=== PATIENT | female | born 1995 | race American Indian/Alaskan Native ===

== ENCOUNTER 2017-07-28 17:17 | Emergency (ER) | payer SELFPAY ==
[2017-07-28 20:45] LABS: Hematocrit 37.2 % (30.3-42.9); Hemoglobin 12.7 gm/dl (10.1-14.3); Mean Corpuscular HGB Conc 34 % (30-34); Mean Corpuscular Hemoglobin 30 pg (28-32); Mean Corpuscular Volume 88 fl (79-97); Platelet Count 272 K/mm3 (140-440); Red Blood Count 4.23 M/mm3 (3.65-5.03); Red Cell Distribution Width 12.3 % (13.2-15.2)
[2017-07-28 20:46] LABS: Basophils # (Auto) 0.1 K/mm3 (0.0-0.1); Basophils % (Auto) 1.2 % (0.0-1.8); Eosinophils # (Auto) 0.2 K/mm3 (0.0-0.4); Eosinophils % (Auto) 2.9 % (0.0-4.3); Lymphocytes # (Auto) 2.5 K/mm3 (1.2-5.4); Monocytes # (Auto) 0.4 K/mm3 (0.0-0.8); Monocytes % (Auto) 7.4 % (0.0-7.3)
--- NOTE | 2017-07-28 23:02 | Ultrasound Report ---
FINAL REPORT EXAM: US OB TRANSVAGINAL HISTORY: vag bleeding TECHNIQUE: Ultrasound obstetrical transvaginal PRIORS: There are no prior studies submitted for comparison FINDINGS: There is a gestational sac present within the uterus mean sac diameter is 3.2 centimeters There is an irregular pole present measuring 0.61 centimeters corresponding to estimated gestational age of 7 weeks 3 days. There is no cardiac activity identified on M-mode, pulsed and color Doppler evaluation. A small echogenic focus within the sac could reflect a yolk sac. There is a cystic area focus within the uterus 0.5 centimeters and small amount of fluid noted within the cervical canal No free-fluid is identified. The right ovary is 2.6 x 2.0 x 2.1 centimeter with a 1.3 centimeter simple appearing cyst left ovary is 3.0 x 1.4 x 2.2 centimeters. IMPRESSION: pole identified corresponding to 7 weeks 3 days with no cardiac activity identified Small amount of fluid in the cervical canal and a small cystic-appearing focus within the uterus differential consideration includes demise, very early gestation is a possibility and continued followup recommended
--- NOTE | 2017-07-28 23:05 | Ultrasound Report ---
FINAL REPORT EXAM: US OB < = 14 WEEKS FETUS HISTORY: vag bleeding TECHNIQUE: Ultrasound obstetrical transabdominal PRIORS: None. FINDINGS: There is a gestational sac present within the uterus mean sac diameter is 3.2 centimeters There is an irregular pole present measuring 0.61 centimeters corresponding to estimated gestational age of 7 weeks 3 days. There is no cardiac activity identified on M-mode, pulsed and color Doppler evaluation. A small echogenic focus within the sac could reflect a yolk sac. There is a cystic area focus within the uterus 0.5 centimeters and small amount of fluid noted within the cervical canal No free-fluid is identified. The right ovary is 2.6 x 2.0 x 2.1 centimeter with a 1.3 centimeter simple appearing cyst left ovary is 3.0 x 1.4 x 2.2 centimeters. IMPRESSION: pole identified corresponding to 7 weeks 3 days with no cardiac activity identified Small amount of fluid in the cervical canal and a small cystic-appearing focus within the uterus differential consideration includes demise, very early gestation is a possibility and continued followup recommended
--- NOTE | 2017-07-28 23:37 | Emergency Department Report ---
ED HPI - General Chief complaint: Vaginal Bleeding Stated complaint: VAGINAL BLEEDING/ Time Seen by Provider: 07/28/17 22:31 Source: patient Mode of arrival: Ambulatory Limitations: No Limitations - History of Present Illness MD Complaint: vaginal bleeding (happened this morning, only small amount then stopped. No active bleeding in the ER. Was associated with lower abdomenal pressure but not now. This is her first and she is 8-9 weeks in . No care yet.) - Related Data Allergies Allergy/AdvReac Type Severity Reaction Status Date / Time No Known Allergies Allergy Unverified 07/28/17 17:28 ED Review of Systems ROS: Stated complaint: VAGINAL BLEEDING/ Other details as noted in HPI Constitutional: denies: chills, fever Eyes: denies: eye pain, eye discharge, vision change ENT: denies: ear pain, throat pain Respiratory: denies: cough, shortness of breath, wheezing Cardiovascular: denies: chest pain, palpitations Endocrine: no symptoms reported Gastrointestinal: denies: abdominal pain, nausea, diarrhea Genitourinary: denies: urgency, dysuria, discharge Musculoskeletal: denies: back pain, joint swelling, arthralgia Skin: denies: rash, lesions Neurological: denies: headache, weakness, paresthesias Psychiatric: denies: anxiety, depression Hematological/Lymphatic: denies: easy bleeding, easy bruising ED Past Medical Hx - Past Medical History Previous Medical History?: No - Surgical History Past Surgical History?: No - Social History Smoking Status: Never Smoker Substance Use Type: None ED Physical Exam - General Limitations: No Limitations General appearance: alert, in no apparent distress - Head Head exam: Present: atraumatic, normocephalic - Eye Eye exam: Present: normal appearance - ENT ENT exam: Present: mucous membranes moist - Neck Neck exam: Present: normal inspection - Respiratory Respiratory exam: Present: normal lung sounds bilaterally. Absent: respiratory distress - Cardiovascular Cardiovascular Exam: Present: regular rate, normal rhythm. Absent: systolic murmur, diastolic murmur, rubs, gallop - GI/Abdominal GI/Abdominal exam: Present: soft, normal bowel sounds - Bi-manual exam: Present: normal bi-manual exam. Absent: cervical motion tendernes, adnexal tenderness, adnexal mass, uterine enlargement, uterine tenderness - Extremities Exam Extremities exam: Present: normal inspection - Back Exam Back exam: Present: normal inspection - Neurological Exam Neurological exam: Present: alert, oriented X3 - Psychiatric Psychiatric exam: Present: normal affect, normal mood - Skin Skin exam: Present: warm, dry, intact, normal color. Absent: rash ED Course Vital Signs 07/28/17 07/28/17 07/28/17 17:28 20:26 20:30 Temperature 99.3 F Pulse Rate 92 H 47 L 46 L Respiratory 16 8 L 8 L Rate Blood Pressure 118/64 161/86 161/86 O2 Sat by Pulse 98 99 99 Oximetry 07/28/17 07/28/17 07/28/17 20:46 22:06 22:12 Temperature Pulse Rate 49 L Respiratory 9 L 18 Rate Blood Pressure 154/83 119/65 O2 Sat by Pulse 97 Oximetry ED Medical Decision Making - Lab Data Result diagrams: 07/28/17 20:22 Critical care attestation.: If time is entered above; I have spent that time in minutes in the direct care of this critically ill patient, excluding procedure time. ED Disposition Clinical Impression: Vaginal bleeding affecting early Disposition: DC-01 TO HOME OR SELFCARE Is pt being admited?: No Does the pt Need Aspirin: No Condition: Good Instructions: Threatened Miscarriage (ED) Referrals: FILIPPO CORADO MD [Primary Care Provider] - 3-5 Days
[2017-07-29 01:00] LABS: Bacteria,Urine 2+ /HPF (Negative); Bilirubin,Urine NEG (Negative); Blood,Urine SM (Negative); Color,Urine Yellow (Yellow); Nitrite,Urine NEG (Negative); Protein,Urine <15 mg/dL mg/dL (Negative)
[2017-07-29 01:40] VITALS: BP 111/65
== END 2017-07-29 01:40 | disposition home or self-care (01) ==
LOC: ED 17:17
DX: O46.91 Antepartum hemorrhage, unspecified, first trimester (principal); Z3A.09 9 weeks gestation of pregnancy
CPT/HCPCS: 36415; 76801; 76817; 81001; 84702; 84703; 85025; 86850; 86900; 86901; 99284

== ENCOUNTER 2019-05-29 15:58 | Emergency (ER) | payer MEDICAID ==
--- NOTE | 2019-05-29 16:34 | Event Note ---
ED Screening Note Date of service: 05/29/19 Time: 16:32 (\) ED Screening Note: 23 y o female presents to ED cc of lower pelvic cramping x 2 days and 1 episode of vomit LMP: 04/19/19- positive home preg test This initial assessment/diagnostic orders/clinical plan/treatment(s) is/are subject to change based on patients health status, clinical progression and re- assessment by fellow clinical providers in the ED. Further treatment and workup at subsequent clinical providers discretion. Patient/guardian urged not to elope from the ED as their condition may be serious if not clinically assessed and managed. Initial orders include: ua,upt acc eval
[2019-05-29 17:59] LABS: HCG Qualitative,Urine Positive (Negative)
[2019-05-29 18:23] LABS: Bilirubin,Urine NEG (Negative); Blood,Urine NEG (Negative); Color,Urine Straw (Yellow); Mucus,Urine FEW /HPF; Protein,Urine <15 mg/dL mg/dL (Negative); Urobilinogen,Urine < 2.0 mg/dL (<2.0)
--- NOTE | 2019-05-29 20:26 | Emergency Department Report ---
ED Female HPI - General Chief complaint: Abdominal Pain Stated complaint: ABD PAIN, PREG Time Seen by Provider: 05/29/19 19:27 Source: patient Mode of arrival: Ambulatory Limitations: No Limitations - History of Present Illness Initial comments: 23-year-old -[place]ian female presents to the emergency room for having lower abdominal pain since last night. Patient admits to nausea and vomiting. Patient denies any diarrhea pain for urination vaginal bleeding or vaginal discharge. Patient reports that she is approximately 2 months . Patient's last menstrual period was 04/19/2019. Patient is 2 para 0. Patient reports the pain is 5 out of 10 and now crampy and intermittently. Patient has taken nothing for pain. Patient reports pain is worse with lying down. MD Complaint: pelvic pain -: Last night Location: suprapubic Severity scale (0 -10): 5 Quality: cramping Consistency: intermittent Improves with: none Worsens with: none Are you Now?: Yes Last Menstrual Period: 04/19/19 EDC: 01/24/20 Associated Symptoms: nausea/vomiting - Related Data Sexually active: Yes : 2 Para: 0 Previous Rx's Medication Instructions Recorded Last Taken Type Cephalexin [Keflex] 500 mg PO BID 7 Days capsule 07/29/17 Unknown Rx Nitrofurantoin [place]/M-Cryst 100 mg PO Q12HR #20 capsule 05/29/19 Unknown Rx [Macrobid CAP] Allergies Allergy/AdvReac Type Severity Reaction Status Date / Time No Known Allergies Allergy Unverified 07/28/17 17:28 ED Review of Systems ROS: Stated complaint: ABD PAIN, PREG Other details as noted in HPI Comment: All other systems reviewed and negative ED Past Medical Hx - Past Medical History Previous Medical History?: No - Surgical History Past Surgical History?: No - Social History Smoking Status: Never Smoker Substance Use Type: None - Medications Home Medications: Home Medications Medication Instructions Recorded Confirmed Last Taken Type Cephalexin [Keflex] 500 mg PO BID 7 Days capsule 07/29/17 Unknown Rx Nitrofurantoin [place]/M-Cryst 100 mg PO Q12HR #20 capsule 05/29/19 Unknown Rx [Macrobid CAP] ED Physical Exam - General Limitations: No Limitations General appearance: alert, in no apparent distress - Head Head exam: Present: atraumatic, normocephalic - Eye Eye exam: Present: normal appearance - ENT ENT exam: Present: mucous membranes moist ED Course Vital Signs 05/29/19 15:59 Temperature 98.5 F Pulse Rate 83 Respiratory 16 Rate Blood Pressure 138/81 O2 Sat by Pulse 100 Oximetry ED Medical Decision Making - Radiology Data Radiology results: report reviewed Patient: PAMELA HERNANDEZ MR#: [id number] : 1995 Acct:[id number] Age/Sex: 21 / F ADM Date: 07/28/17 Loc: ED Attending Dr: Ordering Physician: REBA CLAYTON MD Date of Service: 07/28/17 Procedure(s): US OB transvaginal Accession Number(s): [id number] cc: REBA CLAYTON MD FINAL REPORT EXAM: US OB TRANSVAGINAL HISTORY: vag bleeding TECHNIQUE: Ultrasound obstetrical transvaginal PRIORS: There are no prior studies submitted for comparison FINDINGS: There is a gestational sac present within the uterus mean sac diameter is 3.2 centimeters There is an irregular pole present measuring 0.61 centimeters corresponding to estimated gestational age of 7 weeks 3 days. There is no cardiac activity identified on M-mode, pulsed and color Doppler evaluation. A small echogenic focus within the sac could reflect a yolk sac. There is a cystic area focus within the uterus 0.5 centimeters and small amount of fluid noted within the cervical canal No free-fluid is identified. The right ovary is 2.6 x 2.0 x 2.1 centimeter with a 1.3 centimeter simple appearing cyst left ovary is 3.0 x 1.4 x 2.2 centimeters. IMPRESSION: pole identified corresponding to 7 weeks 3 days with no cardiac activity identified Small amount of fluid in the cervical canal and a small cystic-appearing focus within the uterus differential consideration includes demise, very early gestation is a possibility and continued followup recommended Transcribed By: CARMEN Dictated By: CAROLINE FRIAS MD Electronically Authenticated By: CAROLINE FRIAS MD Signed Date/Time: 07/28/171857 DD/ 57 TD/TT: 07/28/171857 - Medical Decision Making 23-year-old -[place] female presents to the emergency room for having lower abdominal pain since last night. Patient admits to nausea and vomiting. Patient denies any diarrhea pain for urination vaginal bleeding or vaginal discharge. Patient reports that she is approximately 2 months . Patient's last menstrual period was 04/19/2019. Patient is 2 para 0. Patient reports the pain is 5 out of 10 and now crampy and intermittently. Patient has taken nothing for pain. Patient reports pain is worse with lying down. Critical care attestation.: If time is entered above; I have spent that time in minutes in the direct care of this critically ill patient, excluding procedure time. ED Disposition Clinical Impression: UTI (urinary tract infection), Threatened miscarriage in early Disposition: DC- TO HOME OR SELFCARE Is pt being admited?: No Does the pt Need Aspirin: No Condition: Stable Instructions: Abdominal Pain (ED), Threatened Miscarriage (ED), Urinary Tract Infection in Women (ED) Additional Instructions: Please follow up with [facility]. Ultrasound shows no cardiac activity possible ear ly versus demise. I have listed several [facility] providers low for her convenience. You may start to have some bleeding. Prescriptions: Nitrofurantoin [place]/M-Cryst [Macrobid CAP] 100 mg PO Q12HR #20 capsule Referrals: PRIMARY CARE, [Primary Care Provider] - 3-5 Days KRYSTIN GUZMAN MD [Staff Physician] - 3-5 Days JONATHON MENDOZA MD [Staff Physician] - 3-5 Days Forms: Work/School Release Form(ED)
[2019-05-29] MEDS ORDERED: ACETAMINOPHEN 325 MG TAB PO ONE (21:19)
--- NOTE | 2019-05-29 21:37 | Ultrasound Report ---
OB ultrasound. 05/29/2019. HISTORY: Pelvic pain. FINDINGS: Imaging was performed by transabdominally and endovaginally. The uterus measures 9.6 x 4.5 x 5.6 cm. Early gestational sac is dated 6 weeks 6 days. A yolk sac is present. There is no karma e. Right ovary measures 3.2 x 1.7 x 1.5 cm. Left ovary measures 3.5 x 2.6 x 3.6 cm and contains a 2.2 cm solid complex cyst. Both ovaries demonstrate appropriate flow. Negative for adnexal mass or fluid. IMPRESSION: 1. Early gestational sac containing a yolk sac dated 6 weeks 6 days. 2. Probable corpus luteum cyst left ovary. Signer Name: Bob Ortega MD Signed: 05/29/2019 9:32 PM Workstation Name: [id number]
[2019-05-29 22:08] VITALS: BP 125/84
== END 2019-05-29 22:05 | disposition home or self-care (01) ==
LOC: ED 15:58
DX: O23.41 Unspecified infection of urinary tract in pregnancy, first trimester (principal); O20.0 Threatened abortion; Z79.899 Other long term (current) drug therapy; Z3A.01 Less than 8 weeks gestation of pregnancy
CPT/HCPCS: 36415; 76801; 76817; 81001; 81025; 84702

== ENCOUNTER 2019-08-14 08:41 | Emergency (ER) | payer MEDICAID ==
[2019-08-14 08:48] VITALS: BP 118/73
--- NOTE | 2019-08-14 09:25 | Emergency Department Report ---
ED HPI - General Chief complaint: Vaginal Bleeding Stated complaint: 16 WKS /VAGINAL BLOOD Time Seen by Provider: 08/14/19 09:22 Source: patient Mode of arrival: Ambulatory Limitations: No Limitations - History of Present Illness Initial comments: 23-year-old -[place] female who reports she is 16 weeks comes in for vaginal spotting x1. Patient states that she does not have any nausea vomiting had some mild pelvic pain. Patient denies smoking cigarettes or week. Denies any illicit drugs. Feels safe at home. Has not traveled in the last 14 days. Last menstrual period was 04/19/2019. Patient is 2 para 0. patient is followed by [facility]. Complaint: vaginal bleeding - Related Data Previous Rx's Medication Instructions Recorded Last Taken Type Cephalexin [Keflex] 500 mg PO BID 7 Days capsule 07/29/17 Unknown Rx Nitrofurantoin [place]/M-Cryst 100 mg PO Q12HR #20 capsule 05/29/19 Unknown Rx [Macrobid CAP] Allergies Allergy/AdvReac Type Severity Reaction Status Date / Time No Known Allergies Allergy Unverified 07/28/17 17:28 ED Review of Systems ROS: Stated complaint: 16 WKS /VAGINAL BLOOD Other details as noted in HPI Comment: All other systems reviewed and negative ED Past Medical Hx - Past Medical History Previous Medical History?: No - Surgical History Past Surgical History?: No - Social History Smoking Status: Never Smoker Substance Use Type: None - Medications Home Medications: Home Medications Medication Instructions Recorded Confirmed Last Taken Type Cephalexin [Keflex] 500 mg PO BID 7 Days capsule 07/29/17 Unknown Rx Nitrofurantoin [place]/M-Cryst 100 mg PO Q12HR #20 capsule 05/29/19 Unknown Rx [Macrobid CAP] ED Physical Exam - General Limitations: No Limitations General appearance: alert, in no apparent distress - Head Head exam: Present: atraumatic, normocephalic - Eye Eye exam: Present: normal appearance - ENT ENT exam: Present: mucous membranes moist - Neck Neck exam: Present: normal inspection - Respiratory Respiratory exam: Present: normal lung sounds bilaterally. Absent: respiratory distress - Cardiovascular Cardiovascular Exam: Present: regular rate, normal rhythm. Absent: systolic murmur, diastolic murmur, rubs, gallop - GI/Abdominal GI/Abdominal exam: Present: soft, normal bowel sounds - Extremities Exam Extremities exam: Present: normal inspection - Back Exam Back exam: Present: normal inspection - Neurological Exam Neurological exam: Present: alert, oriented X3 - Psychiatric Psychiatric exam: Present: normal affect, normal mood - Skin Skin exam: Present: warm, dry, intact, normal color. Absent: rash ED Course Vital Signs 08/14/19 08:45 Temperature 99.0 F Pulse Rate 108 H Respiratory 18 Rate Blood Pressure 118/73 O2 Sat by Pulse 100 Oximetry ED Medical Decision Making - Lab Data Result diagrams: 08/14/19 10:26 08/14/19 10:26 - Radiology Data Radiology results: report reviewed Patient: PAMELA HERNANDEZ MR#: [id number] : 1995 Acct:[id number] Age/Sex: 23 / F ADM Date: 08/14/19 Loc: ED Attending Dr: Ordering Physician: BLAYNE SOUTH Date of Service: 08/14/19 Procedure(s): US OB >= 14 weeks Fetus Accession Number(s): [id number] cc: BLAYNE SOUTH TRANSABDOMINAL AND TRANSVAGINAL OB PELVIC ULTRASOUND INDICATION / CLINICAL INFORMATION: Bleeding. COMPARISON: 05/29/19. FINDINGS: There is a single intrauterine with an estimated sonographic gestational age of 17 weeks 2 days and an EDC of 01/20/20. Clinical dates are 16 weeks 5 days. There has been appropriate interval growth since the prior study. The heart rate is 142 bpm. presentation is cephalic. Amniotic fluid volume is normal. The placenta is located posteriorly, is grade 1 and is free of the os. The uterine cervix measures 4.4 cm in length and the internal os is closed. The ovaries are not well seen. IMPRESSION: Single viable 17 week 2 day intrauterine without complication. Signer Name: Sohan Kelly MD Signed: 08/14/2019 10:29 AM Workstation Name: [id number] Transcribed By: RT Dictated By: Sohan Kelly MD Electronically Authenticated By: Sohan Kelly MD Signed Date/Time: 08/14/19 1029 DD/ 1022 - Medical Decision Making 23-year-old -[place] female who reports she is 16 weeks comes in for vaginal spotting x1. Patient states that she does not have any nausea vomiting had some mild pelvic pain. Patient denies smoking cigarettes or week. Denies any illicit drugs. Feels safe at home. Has not traveled in the last 14 days. Last menstrual period was 04/19/2019. Patient is 2 para 0. patient is followed by [facility]. Critical care attestation.: If time is entered above; I have spent that time in minutes in the direct care of this critically ill patient, excluding procedure time. ED Disposition Clinical Impression: Vaginal spotting Disposition: DC-01 TO HOME OR SELFCARE Is pt being admited?: No Does the pt Need Aspirin: No Condition: Stable Instructions: Threatened Miscarriage (ED) Additional Instructions: Ultrasound shows a healthy embryo approximately 17 weeks.Shows no anemia. I recommend for you to follow-up with your [facility] provider.
--- NOTE | 2019-08-14 10:33 | Ultrasound Report ---
TRANSABDOMINAL AND TRANSVAGINAL OB PELVIC ULTRASOUND INDICATION / CLINICAL INFORMATION: Bleeding. COMPARISON: 05/29/19. FINDINGS: There is a single intrauterine with an estimated sonographic gestational age of 17 weeks 2 days and an EDC of 01/20/20. Clinical dates are 16 weeks 5 days. There has been appropriate interval growth since the prior study. The heart rate is 142 bpm. presentation is cephalic. Amniotic fluid volume is normal. The placenta is located posteriorly, is grade 1 and is free of the os. The uterine cervix measures 4.4 cm in length and the internal os is closed. The ovaries are not well seen. IMPRESSION: Single viable 17 week 2 day intrauterine without complication. Signer Name: Sohan Kelly MD Signed: 08/14/2019 10:29 AM Workstation Name: [id number]
[2019-08-14 11:01] LABS: Basophils % (Auto) 0.8 % (0.0-1.8); Eosinophils # (Auto) 0.1 K/mm3 (0.0-0.4); Eosinophils % (Auto) 1.4 % (0.0-4.3); Hematocrit 30.5 % (30.3-42.9); Hemoglobin 10.6 gm/dl (10.1-14.3); Lymphocytes # (Auto) 1.3 K/mm3 (1.2-5.4); Lymphocytes % (Auto) 23.8 % (13.4-35.0); Mean Corpuscular HGB Conc 35 % (30-34); Mean Corpuscular Volume 85 fl (79-97); Monocytes # (Auto) 0.5 K/mm3 (0.0-0.8); Monocytes % (Auto) 8.5 % (0.0-7.3); Platelet Count 261 K/mm3 (140-440); Red Blood Count 3.61 M/mm3 (3.65-5.03)
[2019-08-14 11:08] LABS: BUN/Creatinine Ratio 13; Blood Urea Nitrogen 5 mg/dL (7-17); Calcium 8.8 mg/dL (8.4-10.2); Hemolysis Index 0
== END 2019-08-14 12:50 | disposition home or self-care (01) ==
LOC: ED 08:41
DX: O26.852 Spotting complicating pregnancy, second trimester (principal); Z3A.17 17 weeks gestation of pregnancy; Z79.899 Other long term (current) drug therapy
CPT/HCPCS: 36415; 76805; 76817; 80048; 84703; 85025; 86850; 86900; 86901

== ENCOUNTER 2019-11-05 17:51 | Observation (INO) | payer MEDICAID ==
[2019-11-05 18:39] LABS: Bacteria,Urine 2+ /HPF (Negative); Bilirubin,Urine NEG (Negative); Blood,Urine NEG (Negative); Color,Urine Yellow (Yellow); Mucus,Urine FEW /HPF; Protein,Urine <15 mg/dL mg/dL (Negative); Urobilinogen,Urine < 2.0 mg/dL (<2.0)
[2019-11-05] MEDS ORDERED: AMPICILLIN/NS 2 GM/100 ML 2 GM/100 ML BAG IV ONE (21:00)
[2019-11-05] MEDS: LACTATED RINGERS 1,000 ML IV SCH (21:01)
--- NOTE | 2019-11-05 21:46 | Ultrasound Report ---
US OB limited INDICATION / CLINICAL INFORMATION: labor. COMPARISON: 08/14/2019 FINDINGS: Viable single intrauterine gestation in the cephalic presentation. heart rate 157 bpm. DEANGELO is 14. IMPRESSION: 1. Normal DEANGELO. Signer Name: Tobias Mena MD Signed: 11/05/2019 9:41 PM Workstation Name: [id number]
--- NOTE | 2019-11-05 21:48 | Ultrasound Report ---
ULTRASOUND RENAL INDICATION: CVA TENDERNESS. COMPARISON: No relevant prior imaging study available. FINDINGS: RIGHT KIDNEY: Size: 12.8 cm. Echogenicity: Normal. Cortical thickness: Normal. Stones: None. Hydronephrosis: Moderate hydronephrosis. Cyst or mass: None. LEFT KIDNEY: Size: 11.4 cm. Echogenicity: Normal. Cortical thickness: Normal. Stones: None. Hydronephrosis: None. Cyst or mass: None. Urinary Bladder: Nondistended. Free Fluid: None. Additional Findings: None. IMPRESSION 1. Right hydronephrosis. Signer Name: Tobias Mena MD Signed: 11/05/2019 9:43 PM Workstation Name: [id number]
[2019-11-05 22:59] LABS: Basophils # (Auto) 0.1 K/mm3 (0.0-0.1); Eosinophils # (Auto) 0.1 K/mm3 (0.0-0.4); Hematocrit 29.1 % (30.3-42.9); Hemoglobin 9.5 gm/dl (10.1-14.3); Lymphocytes # (Auto) 1.9 K/mm3 (1.2-5.4); Lymphocytes % (Auto) 24.6 % (13.4-35.0); Mean Corpuscular HGB Conc 33 % (30-34); Mean Corpuscular Volume 81 fl (79-97); Monocytes # (Auto) 0.6 K/mm3 (0.0-0.8); Monocytes % (Auto) 7.5 % (0.0-7.3); Platelet Count 332 K/mm3 (140-440); Red Blood Count 3.57 M/mm3 (3.65-5.03); Red Cell Distribution Width 13.6 % (13.2-15.2)
[2019-11-05 23:07] LABS: Amphetamine Screen,Urine PRESUMPTIVE NEGATIVE; Benzodiazepines Screen,Urine PRESUMPTIVE NEGATIVE; Cannabinoid Screen,Urine PRESUMPTIVE NEGATIVE; Cocaine Screen,Urine PRESUMPTIVE NEGATIVE; Methadone Screen,Urine PRESUMPTIVE NEGATIVE; Opiate Screen,Urine PRESUMPTIVE NEGATIVE
[2019-11-05 23:12] LABS: Alanine Aminotransferase 7 units/L (7-56); Albumin 3.5 g/dL (3.9-5); BUN/Creatinine Ratio 10; Blood Urea Nitrogen 4 mg/dL (7-17); Calcium 8.9 mg/dL (8.4-10.2); Hemolysis Index 23
[2019-11-06] MEDS: AMPICILLIN/NS 1 GM/50 ML 1 GM/50 ML BAG IV SCH ×3 (02:09→10:29)
[2019-11-06] MEDS: LACTATED RINGERS 1,000 ML IV SCH (10:28)
[2019-11-06 13:23] VITALS: BP 111/68
== END 2019-11-06 13:30 | disposition home or self-care (01) ==
LOC: TRG 17:51 → APU 18:04 → TRG 18:24 → LD 11-06 05:38
PROVIDERS: ADMIT Obstetrics & Gynecology; ATTEND Obstetrics & Gynecology
DX: O60.03 Preterm labor without delivery, third trimester (principal); Z3A.28 28 weeks gestation of pregnancy
CPT/HCPCS: 36415; 76770; 76815; 80053; 80307; 81001; 85025; 87086; 96374; 96376; G0378; J0290; J7120

== ENCOUNTER 2019-12-28 23:23 | Outpatient (CLI) | payer MEDICAID ==
[2019-12-29] VITALS: BP 116/81
== END 2019-12-29 00:34 | disposition home or self-care (01) ==
LOC: TRG 23:23
PROVIDERS: ATTEND Obstetrics & Gynecology
DX: O42.913 Preterm premature rupture of membranes, unspecified as to length of time between rupture and onset of labor, third trimester (principal); Z3A.36 36 weeks gestation of pregnancy
CPT/HCPCS: 59025

== ENCOUNTER 2020-01-11 14:20 | Outpatient (CLI) | payer MEDICAID ==
[2020-01-11 14:57] VITALS: BP 133/88
== END 2020-01-11 17:22 | disposition home or self-care (01) ==
LOC: TRG 14:20 → APU 14:20 → TRG 17:22
PROVIDERS: ATTEND Obstetrics & Gynecology
DX: O26.893 Other specified pregnancy related conditions, third trimester (principal); R10.9 Unspecified abdominal pain; Z3A.38 38 weeks gestation of pregnancy
CPT/HCPCS: 59025

== ENCOUNTER 2020-01-20 11:16 | Outpatient (CLI) | payer MEDICAID ==
[2020-01-20 12:37] LABS: Alanine Aminotransferase 12 units/L (7-56); Uric Acid 4.9 mg/dL (3.5-7.6)
[2020-01-20 12:53] LABS: Hematocrit 25.4 % (30.3-42.9); Hemoglobin 8.3 gm/dl (10.1-14.3); Mean Corpuscular HGB Conc 33 % (30-34); Mean Corpuscular Volume 70 fl (79-97); Red Blood Count 3.65 M/mm3 (3.65-5.03)
[2020-01-20 12:54] LABS: Platelet Count 276 K/mm3 (140-440); Red Cell Distribution Width 18.1 % (13.2-15.2)
[2020-01-20 13:06] LABS: Bacteria,Urine 2+ /HPF (Negative); Bilirubin,Urine NEG (Negative); Blood,Urine MOD (Negative); Color,Urine Straw (Yellow); Mucus,Urine FEW /HPF; Protein,Urine <15 mg/dL mg/dL (Negative); Urobilinogen,Urine < 2.0 mg/dL (<2.0)
[2020-01-20 13:22] VITALS: BP 124/79
== END 2020-01-20 14:15 | disposition home or self-care (01) ==
LOC: APU 11:16 → TRG 11:16
PROVIDERS: ATTEND Obstetrics & Gynecology
DX: O13.3 Gestational [pregnancy-induced] hypertension without significant proteinuria, third trimester (principal); Z3A.39 39 weeks gestation of pregnancy
CPT/HCPCS: 36415; 59025; 81001; 82565; 83615; 84450; 84460; 84550; 85027; 87086

== ENCOUNTER 2020-03-29 19:50 | Emergency (ER) | payer MEDICAID ==
[2020-03-29 19:59] VITALS: BP 149/79
--- NOTE | 2020-03-29 20:53 | Emergency Department Report ---
ED Headache HPI - General Chief Complaint: Headache Stated Complaint: HEADACHE Time Seen by Provider: 03/29/20 20:48 - History of Present Illness Initial Comments: Patient is a 24-year-old female presents emergency room with complaints of a frontal headache that began 2 days ago. She states that she has been taking Tylenol which helps relieve the headache but occasionally it will return. She states the headache is a 5 out of 10. She denies any fall or injury, neck stiffness, fever, nausea, vomiting, diarrhea, shortness of breath, chest pain, vision changes, numbness, weakness. Patient states that she was evaluated in [facility] emergency department at [facility] yesterday 03/28/2020 due to headache, fatigue and was diagnosed with anemia. She states that she did not require a blood transfusion. She denies any bleeding present she states that she has a history of anemia. She was given iron tablet prescription per patient. She has never required a transfusion. She states that they did not start her on a stool softener. She has a past medical history of asthma and eczema. No allergies to medications. Allergies/Adverse Reactions: Allergies Latex, Natural Rubber Allergy (Verified 01/22/20 06:46) Rash Pt states she has redness and irritation from latex Home Medications: Ambulatory Orders Cephalexin [Keflex] 500 mg PO BID 7 Days capsule 07/29/17 Nitrofurantoin Ellis/M-Cryst [Macrobid CAP] 100 mg PO Q12HR #20 capsule 05/29/19 Ampicillin 500 mg PO Q6H #30 capsule 11/06/19 Ibuprofen [Motrin 800 MG tab] 800 mg PO Q6H PRN #30 tablet 01/22/20 oxyCODONE /ACETAMINOPHEN [Percocet 5/325 mg] 1 tab PO Q6H PRN #30 tablet 01/22/20 Ferrous Sulfate [Feosol 325 MG tab] 325 mg PO TID 30 Days #90 tablet 01/25/20 labetaloL [Labetalol 100mg TAB] 100 mg PO BID 7 Days #14 tablet 01/25/20 Butalb/Acetaminophen/Caffeine [Fioricet 50-300-40 mg CAP] 1 cap PO Q8HR PRN #12 cap 03/29/20 Docusate Sodium [Colace] 100 mg PO BID #60 capsule 03/29/20 ED Review of Systems ROS: Stated complaint: HEADACHE Other details as noted in HPI Comment: All other systems reviewed and negative ED Past Medical Hx - Past Medical History Previous Medical History?: Yes Hx Hypertension: Yes (during ) Hx Congestive Heart Failure: No Hx Diabetes: No Hx Deep Vein Thrombosis: No Hx Renal Disease: No Hx Sickle Cell Disease: Yes (SICKLE-CELL TRAIT) Hx Headaches / Migraines: Yes Hx Seizures: No Hx Asthma: Yes (2018) Hx COPD: No Hx HIV: No - Surgical History Past Surgical History?: Yes Additional Surgical History: C-Sec - Social History Smoking Status: Never Smoker Substance Use Type: None - Medications Home Medications: Home Medications Medication Instructions Recorded Confirmed Last Taken Type Cephalexin [Keflex] 500 mg PO BID 7 Days capsule 07/29/17 01/22/20 Unknown Rx Nitrofurantoin Ellis/M-Cryst 100 mg PO Q12HR #20 capsule 05/29/19 01/22/20 Unknown Rx [Macrobid CAP] Ampicillin 500 mg PO Q6H #30 capsule 11/06/19 01/22/20 Unknown Rx Ibuprofen [Motrin 800 MG tab] 800 mg PO Q6H PRN #30 tablet 01/22/20 Unknown Rx oxyCODONE /ACETAMINOPHEN [Percocet 1 tab PO Q6H PRN #30 tablet 01/22/20 Unknown Rx 5/325 mg] Ferrous Sulfate [Feosol 325 MG tab] 325 mg PO TID 30 Days #90 tablet 01/25/20 Unknown Rx labetaloL [Labetalol 100mg TAB] 100 mg PO BID 7 Days #14 tablet 01/25/20 Unknown Rx Butalb/Acetaminophen/Caffeine 1 cap PO Q8HR PRN #12 cap 03/29/20 Unknown Rx [Fioricet 50-300-40 mg CAP] Docusate Sodium [Colace] 100 mg PO BID #60 capsule 03/29/20 Unknown Rx ED Physical Exam - General Limitations: No Limitations General appearance: alert, in no apparent distress - Head Head exam: Present: atraumatic, normocephalic - Eye Eye exam: Present: normal appearance, PERRL, EOMI, other (no pale conjunctiva). Absent: periorbital swelling, periorbital tenderness - ENT ENT exam: Present: mucous membranes moist - Respiratory Respiratory exam: Present: normal lung sounds bilaterally. Absent: respiratory distress, wheezes, rales, rhonchi, stridor, chest wall tenderness, accessory muscle use, decreased breath sounds, prolonged expiratory - Cardiovascular Cardiovascular Exam: Present: regular rate, normal rhythm, normal heart sounds. Absent: systolic murmur, diastolic murmur, rubs, gallop - Neurological Exam Neurological exam: Present: alert, oriented X3, CN II-XII intact, normal gait. Absent: motor sensory deficit - Psychiatric Psychiatric exam: Present: normal affect, normal mood - Skin Skin exam: Present: warm, dry, intact ED Course Vital Signs 03/29/20 19:55 Temperature 99.3 F Pulse Rate 105 H Respiratory 18 Rate Blood Pressure 149/79 O2 Sat by Pulse 100 Oximetry ED Medical Decision Making - Medical Decision Making Patient is a 24-year-old female presents emergency room with complaints of a frontal headache that began 2 days ago. She states that she has been taking Tylenol which helps relieve the headache but occasionally it will return. She states the headache is a 5 out of 10. She denies any fall or injury, neck stiffness, fever, nausea, vomiting, diarrhea, shortness of breath, chest pain, v ision changes, numbness, weakness. Patient states that she was evaluated in the emergency department at [facility] yesterday 03/28/2020 due to headache, fatigue and was diagnosed with anemia. She states that she did not require a blood transfusion. She denies any bleeding present she states that she has a history of anemia. She was given iron tablet prescription per patient. She has never required a transfusion. She states that they did not start her on a stool softener. She has a past medical history of asthma and eczema. No allergies to medications. Vitals are stable. Patient is nontoxic-appearing, no acute distress, no pale conjunctiva, no focal neuro deficits. Patient is presenting with mild headache. Patient will be given prescription for Fioricet. Advised patient to stop taking regular Tylenol. Patient will also be given prescription for Colace as she was recently started on iron supplements. Patient will be referred to primary care physician for close follow-up. Discussed very strict return precautions with patient. Advised patient Please take medication as prescribed. Stop taking regular Tylenol. Increase your water intake. Please eat iron rich foods. Follow-up with a primary care doctor in the next 2 to 3 days for reexamination. Return to emergency room immediately for any new or worsening symptoms including but not limited to worsening fatigue, shortness of breath, chest pain, lightheadedness, dizziness, episodes of feeling like you are going to pass out or passing out, heavy bleeding, etc. Critical care attestation.: If time is entered above; I have spent that time in minutes in the direct care of this critically ill patient, excluding procedure time. ED Disposition Clinical Impression: History of anemia Headache Qualifiers: Headache type: unspecified Headache chronicity pattern: acute headache Intractability: not intractable Qualified Code(s): R51.9 - Headache, unspecified Disposition: DC- TO HOME OR SELFCARE Is pt being admited?: No Does the pt Need Aspirin: No Condition: Stable Instructions: Iron Rich Diet (ED), Acute Headache (ED), Anemia (ED) Additional Instructions: Please take medication as prescribed. Stop taking regular Tylenol. Increase your water intake. Please eat iron rich foods. Follow-up with a primary care doctor in the next 2 to 3 days for reexamination. Return to emergency room immediately for any new or worsening symptoms including but not limited to w orsening fatigue, shortness of breath, chest pain, lightheadedness, dizziness, episodes of feeling like you are going to pass out or passing out, heavy bleeding, etc. Prescriptions: Docusate Sodium [Colace] 100 mg PO BID #60 capsule Butalb/Acetaminophen/Caffeine [Fioricet 50-300-40 mg CAP] 1 cap PO Q8HR PRN #12 cap PRN Reason: headache Referrals: KATHLEEN PANDEY MD [Staff Physician] - 2-3 Days [facility] [Provider Group] - 2-3 Days [facility], [LAB/CONTRACT] - 2-3 Days Time of Disposition: 20:52 Print Language: LEBANESE
== END 2020-03-29 21:00 | disposition home or self-care (01) ==
LOC: ED 19:50
DX: R51.9 Headache, unspecified (principal); D64.9 Anemia, unspecified; I10 Essential (primary) hypertension; J45.909 Unspecified asthma, uncomplicated; Z98.890 Other specified postprocedural states; Z79.1 Long term (current) use of non-steroidal anti-inflammatories (NSAID); Z79.899 Other long term (current) drug therapy; Z91.040 Latex allergy status; Z88.8 Allergy status to other drugs, medicaments and biological substances
CPT/HCPCS: 99282

== ENCOUNTER 2020-06-29 18:33 | Emergency (ER) | payer MEDICAID ==
[2020-06-29 18:50] VITALS: BP 105/67
--- NOTE | 2020-06-29 19:03 | Emergency Department Report ---
Blank Doc - Documentation Documentation: This is a 24-year-old female that presents with LLQ pain. Stated has radiation to RLQ. Exam; left lower quadrant tenderness. 1- This initial assessment/diagnostic orders/clinical plan/ treatment(s) is/are subject to change based on pt's health status, clinical progression and re- assessment by fellow clinical providers in the ED. Further treatment and workup at subsequent clinical provers discretion. Patient/guardians urged not to elope from ED as their condition may be serious if not clinically assessed and managed. 2-labs 3-UA
[2020-06-29 19:24] LABS: Basophils # (Auto) 0.1 K/mm3 (0.0-0.1); Basophils % (Auto) 0.8 % (0.0-1.8); Eosinophils % (Auto) 0.8 % (0.0-4.3); Hematocrit 33.7 % (30.3-42.9); Hemoglobin 11.2 gm/dl (10.1-14.3); Lymphocytes # (Auto) 2.4 K/mm3 (1.2-5.4); Mean Corpuscular HGB Conc 33 % (30-34); Mean Corpuscular Volume 81 fl (79-97); Monocytes # (Auto) 0.4 K/mm3 (0.0-0.8); Monocytes % (Auto) 7.4 % (0.0-7.3); Platelet Count 360 K/mm3 (140-440); Red Blood Count 4.14 M/mm3 (3.65-5.03); Red Cell Distribution Width 17.6 % (13.2-15.2)
[2020-06-29 19:39] LABS: Alanine Aminotransferase 11 units/L (7-56); Albumin 4.4 g/dL (3.9-5); Blood Urea Nitrogen 10 mg/dL (7-17); Calcium 9.1 mg/dL (8.4-10.2); Hemolysis Index 15
[2020-06-29 19:54] LABS: BUN/Creatinine Ratio 17
[2020-06-29 23:09] LABS: Bacteria,Urine 1+ /HPF (Negative); Bilirubin,Urine NEG (Negative); Blood,Urine NEG (Negative); Color,Urine Yellow (Yellow); Protein,Urine <15 mg/dL mg/dL (Negative); Urobilinogen,Urine < 2.0 mg/dL (<2.0)
--- NOTE | 2020-06-29 23:27 | Emergency Department Report ---
ED General Adult HPI - General Chief complaint: Abdominal Pain Stated complaint: CRAMPING PUI?: No Time Seen by Provider: 06/29/20 18:58 Source: patient Mode of arrival: Ambulatory Limitations: No Limitations - History of Present Illness Initial comments: This is a 24-year-old -0-1-1 who presents to ED status post January 2020 who presents the ED complaining of mild intermittent pelvic cramping at her scar. Patient states she had 9 had a normal cycle since the of her child in January and has had no normal cycle states a couple of days ago she started experiencing some intermittent cramping and was not sure if her cycle was about to start. Patient states that she just feels some discomfort a nd wanted to be evaluated. Patient denies nausea vomiting chest pain, shortness of breath, abdominal pain, diarrhea, dysuria, vaginal bleeding. -: days(s) (2) Radiation: non-radiation Quality: other (cramping) Associated Symptoms: denies other symptoms Treatments Prior to Arrival: none - Related Data Previous Rx's Medication Instructions Recorded Last Taken Type cephALEXin [Keflex] 500 mg PO BID 7 Days capsule 07/29/17 Unknown Rx Nitrofurantoin Churchill/M-Cryst 100 mg PO Q12HR #20 capsule 05/29/19 Unknown Rx [Macrobid CAP] Ampicillin 500 mg PO Q6H #30 capsule 11/06/19 Unknown Rx Ibuprofen [Motrin 800 MG tab] 800 mg PO Q6H PRN #30 tablet 01/22/20 Unknown Rx oxyCODONE /ACETAMINOPHEN [Percocet 1 tab PO Q6H PRN #30 tablet 01/22/20 Unknown Rx 5/325 mg] Ferrous Sulfate [Feosol 325 MG tab] 325 mg PO TID 30 Days #90 tablet 01/25/20 Unknown Rx labetaloL [Labetalol 100mg TAB] 100 mg PO BID 7 Days #14 tablet 01/25/20 Unknown Rx Butalb/Acetaminophen/Caffeine 1 cap PO Q8HR PRN #12 cap 03/29/20 Unknown Rx [Fioricet 50-300-40 mg CAP] Docusate Sodium [Colace] 100 mg PO BID #60 capsule 03/29/20 Unknown Rx Vit-Fe Fumar-FA [ 1 tab PO QDAY #60 tablet 06/29/20 Unknown Rx Vitamin] Allergies Allergy/AdvReac Type Severity Reaction Status Date / Time Latex, Natural Rubber Allergy Rash Verified 01/22/20 06:46 ED Review of Systems ROS: Stated complaint: CRAMPING Other details as noted in HPI Comment: All other systems reviewed and negative ED Past Medical Hx - Past Medical History Previous Medical History?: Yes Hx Hypertension: Yes (during ) Hx Congestive Heart Failure: No Hx Diabetes: No Hx Deep Vein Thrombosis: No Hx Renal Disease: No Hx Sickle Cell Disease: Yes (SICKLE-CELL TRAIT) Hx Headaches / Migraines: Yes Hx Seizures: No Hx Asthma: Yes (2018) Hx COPD: No Hx HIV: No - Surgical History Past Surgical History?: Yes Additional Surgical History: C section - Social History Smoking Status: Never Smoker Substance Use Type: None - Medications Home Medications: Home Medications Medication Instructions Recorded Confirmed Last Taken Type cephALEXin [Keflex] 500 mg PO BID 7 Days capsule 07/29/17 01/22/20 Unknown Rx Nitrofurantoin Churchill/M-Cryst 100 mg PO Q12HR #20 capsule 05/29/19 01/22/20 Unknown Rx [Macrobid CAP] Ampicillin 500 mg PO Q6H #30 capsule 11/06/19 01/22/20 Unknown Rx Ibuprofen [Motrin 800 MG tab] 800 mg PO Q6H PRN #30 tablet 01/22/20 Unknown Rx oxyCODONE /ACETAMINOPHEN [Percocet 1 tab PO Q6H PRN #30 tablet 01/22/20 Unknown Rx 5/325 mg] Ferrous Sulfate [Feosol 325 MG tab] 325 mg PO TID 30 Days #90 tablet 01/25/20 Unknown Rx labetaloL [Labetalol 100mg TAB] 100 mg PO BID 7 Days #14 tablet 01/25/20 Unknown Rx Butalb/Acetaminophen/Caffeine 1 cap PO Q8HR PRN #12 cap 03/29/20 Unknown Rx [Fioricet 50-300-40 mg CAP] Docusate Sodium [Colace] 100 mg PO BID #60 capsule 03/29/20 Unknown Rx Vit-Fe Fumar-FA [ 1 tab PO QDAY #60 tablet 06/29/20 Unknown Rx Vitamin] ED Physical Exam - General Limitations: No Limitations General appearance: alert, in no apparent distress - Head Head exam: Present: atraumatic, normocephalic - Eye Eye exam: Present: normal appearance - ENT ENT exam: Present: mucous membranes moist - Neck Neck exam: Present: normal inspection - Respiratory Respiratory exam: Present: normal lung sounds bilaterally. Absent: respiratory distress - Cardiovascular Cardiovascular Exam: Present: regular rate, normal rhythm. Absent: systolic murmur, diastolic murmur, rubs, gallop - GI/Abdominal GI/Abdominal exam: Present: soft, normal bowel sounds, other (Nontender to palpation on all quadrants and pelvis). Absent: distended, tenderness, guarding, mass, bruit - Extremities Exam Extremities exam: Present: normal inspection - Back Exam Back exam: Present: normal inspection - Neurological Exam Neurological exam: Present: alert, oriented X3, normal gait - Psychiatric Psychiatric exam: Present: normal affect, normal mood - Skin Skin exam: Present: warm, dry, intact, normal color. Absent: rash ED Course Vital Signs 06/29/20 18:49 Temperature 98.3 F Pulse Rate 92 H Respiratory 16 Rate Blood Pressure 105/67 [Right] O2 Sat by Pulse 100 Oximetry ED Medical Decision Making - Lab Data Result diagrams: 06/29/20 19:05 06/29/20 19:05 Laboratory Last Values WBC 6.0 K/mm3 (4.5-11.0) 06/29/20 19:05 RBC 4.14 M/mm3 (3.65-5.03) 06/29/20 19:05 Hgb 11.2 gm/dl (10.1-14.3) 06/29/20 19:05 Hct 33.7 % (30.3-42.9) 06/29/20 19:05 MCV 81 fl (79-97) 06/29/20 19:05 MCH 27 pg (28-32) L 06/29/20 19:05 MCHC 33 % (30-34) 06/29/20 19:05 RDW 17.6 % (13.2-15.2) H 06/29/20 19:05 Plt Count 360 K/mm3 (140-440) 06/29/20 19:05 Lymph % (Auto) 40.0 % (13.4-35.0) H 06/29/20 19:05 Churchill % (Auto) 7.4 % (0.0-7.3) H 06/29/20 19:05 Eos % (Auto) 0.8 % (0.0-4.3) 06/29/20 19:05 Baso % (Auto) 0.8 % (0.0-1.8) 06/29/20 19:05 Lymph # (Auto) 2.4 K/mm3 (1.2-5.4) 06/29/20 19:05 Churchill # (Auto) 0.4 K/mm3 (0.0-0.8) 06/29/20 19:05 Eos # (Auto) 0.0 K/mm3 (0.0-0.4) 06/29/20 19:05 Baso # (Auto) 0.1 K/mm3 (0.0-0.1) 06/29/20 19:05 Seg Neutrophils % 51.0 % (40.0-70.0) 06/29/20 19:05 Seg Neutrophils # 3.1 K/mm3 (1.8-7.7) 06/29/20 19:05 Sodium 137 mmol/L (137-145) 06/29/20 19:05 Potassium 4.2 mmol/L (3.6-5.0) 06/29/20 19:05 Chloride 105.8 mmol/L (98-107) 06/29/20 19:05 Carbon Dioxide 21 mmol/L (22-30) L 06/29/20 19:05 Anion Gap 14 mmol/L 06/29/20 19:05 BUN 10 mg/dL (7-17) 06/29/20 19:05 Creatinine 0.6 mg/dL (0.6-1.2) 06/29/20 19:05 Estimated GFR > 60 ml/min 06/29/20 19:05 BUN/Creatinine Ratio 17 % 06/29/20 19:05 Glucose 91 mg/dL (65-100) 06/29/20 19:05 Calcium 9.1 mg/dL (8.4-10.2) 06/29/20 19:05 Total Bilirubin 0.50 mg/dL (0.1-1.2) 06/29/20 19:05 AST 15 units/L (5-40) 06/29/20 19:05 ALT 11 units/L (7-56) 06/29/20 19:05 Alkaline Phosphatase 85 units/L (35-129) 06/29/20 19:05 Total Protein 7.0 g/dL (6.3-8.2) 06/29/20 19:05 Albumin 4.4 g/dL (3.9-5) 06/29/20 19:05 Albumin/Globulin Ratio 1.7 % 06/29/20 19:05 Lipase 16 units/L (13-60) 06/29/20 19:05 HCG, Qual Positive (Negative) 06/29/20 19:05 HCG, Quant 5167 mIU/mL (0-4) H 06/29/20 19:05 Urine Color Yellow (Yellow) 06/29/20 Unknown Urine Turbidity Clear (Clear) 06/29/20 Unknown Urine pH 5.0 (5.0-7.0) 06/29/20 Unknown Ur Specific [place] 1.014 (1.003-1.030) 06/29/20 Unknown Urine Protein <15 mg/dl mg/dL (Negative) 06/29/20 Unknown Urine Glucose (UA) Neg mg/dL (Negative) 06/29/20 Unknown Urine Ketones Tr mg/dL (Negative) 06/29/20 Unknown Urine Blood Neg (Negative) 06/29/20 Unknown Urine Nitrite Neg (Negative) 06/29/20 Unknown Urine Bilirubin Neg (Negative) 06/29/20 Unknown Urine Urobilinogen < 2.0 mg/dL (<2.0) 06/29/20 Unknown Ur Leukocyte Esterase Neg (Negative) 06/29/20 Unknown Urine WBC (Auto) 3.0 /HPF (0.0-6.0) 06/29/20 Unknown Urine RBC (Auto) 2.0 /HPF (0.0-6.0) 06/29/20 Unknown U Epithel Cells (Auto) 5.0 /HPF (0-13.0) 06/29/20 Unknown Urine Bacteria (Auto) 1+ /HPF (Negative) 06/29/20 Unknown - Medical Decision Making 24-year-old female presents to ED with mild intermittent cramping ED course: Pt received CBC, urinalysis, test and quantitative ED All labs within normal limits, quantitative elevated at 5100 Vital signs normalized patient is in no acute distress. I discussed with the patient if follow-up with her [facility] in 2 to 3 days. I discussed all labs finding with the patient. I discussed the patient should start on vitamins. I discussed with the patient that he if bleeding worsens or new symptoms develop to return to ED immediately. Critical care attestation.: If time is entered above; I have spent that time in minutes in the direct care of this critically ill patient, excluding procedure time. ED Disposition Clinical Impression: Positive blood test Disposition: TO HOME OR SELFCARE Is pt being admited?: No Does the pt Need Aspirin: No Condition: Stable Instructions: Abdominal Pain (ED), Care Additional Instructions: Make sure to follow up with the [facility] in 2 days as discussed. Take all your medications as you've been prescribed. If you have any worsening symptoms or develop new symptoms please return to ED immediately. Prescriptions: Vit-Fe Fumar-FA [ Vitamin] 1 tab PO QDAY #60 tablet Referrals: PRIMARY CARE, [Primary Care Provider] - 3-5 Days [facility] [Provider Group] - 3-5 Days [facility] [Provider Group] - 3-5 Days Forms: Work/School Release Form(ED) Time of Disposition: 23:30
== END 2020-06-30 00:28 | disposition home or self-care (01) ==
LOC: ED 18:33
DX: Z32.01 Encounter for pregnancy test, result positive (principal); R10.2 Pelvic and perineal pain; I10 Essential (primary) hypertension; G43.909 Migraine, unspecified, not intractable, without status migrainosus; J45.909 Unspecified asthma, uncomplicated; Z98.890 Other specified postprocedural states; Z79.1 Long term (current) use of non-steroidal anti-inflammatories (NSAID); Z79.899 Other long term (current) drug therapy; Z91.040 Latex allergy status; Z88.8 Allergy status to other drugs, medicaments and biological substances
CPT/HCPCS: 36415; 80053; 81001; 83690; 84702; 84703; 85025